=== PATIENT | female | born 1985 | race African-American/Black ===

== ENCOUNTER 2019-12-31 10:02 | Emergency (ER) | payer SELFPAY ==
[~2019-12-31] VITALS: Ht 165.1 cm; Wt 61.1 kg
[2019-12-31] MEDS ORDERED: TRAM50TA PO (10:33)
[2019-12-31] MEDS ORDERED: AMOX500C PO (10:33)
[2019-12-31] MEDS ORDERED: PRED50TA PO (10:33)
--- NOTE | 2019-12-31 10:33 | PHYS DOC ---
Adult General Chief Complaint Chief Complaint: SORE THROAT [facility] HPI Patient is a 34 year old female who presents with complaint of sore throat 2 days duration. No fever or chills reported. No cough. She has taken pgyj-abt-rocdhat medication for pain but has not had relief. Pain is moderate in severity and worse with swallowing. She denies difficulty swallowing Review of Systems Review of Systems All other ROS is negative unless otherwise stated in HPI Physical Exam Physical Exam See above Constitutional: Well developed, well nourished, no acute distress, non-toxic appearance. [] HENT: Normocephalic, atraumatic, bilateral external ears normal, patient has moderate posterior pharynx erythema with exudate noted on the right side. Eyes: PERRLA, EOMI, conjunctiva normal, no discharge. [] Neck: Normal range of motion, no tenderness, supple, no stridor. Anterior cervical lymphadenopathy noted Cardiovascular:Heart rate regular rhythm, no murmur [] Lungs & Thorax: Bilateral breath sounds clear to auscultation [] Skin: Warm, dry, no erythema, no rash. [] Back: No tenderness, no CVA tenderness. [] Extremities: No tenderness, no cyanosis, no clubbing, ROM intact, no edema. [] Neurologic: Alert and oriented X 3 EKG EKG [] Radiology/Procedures Radiology/Procedures [] Course & Med Decision Making Course & Med Decision Making Pertinent Labs and Imaging studies reviewed. (See chart for details) 1030: This patient is seen for sore throat and examination is consistent with strep pharyngitis. We'll start her on amoxicillin. Patient was given the option of intramuscular injection versus oral tablets and she would rather do tablets. I will also place her on prednisone for 3 days to help with swelling and inflammation. Dragon Disclaimer Dragon Disclaimer This electronic medical record was generated, in whole or in part, using a voice recognition dictation system. Departure Departure Impression: Primary Impression: Strep sore throat Disposition: 01 HOME, SELF-CARE Condition: STABLE Referrals: NO PCP (PCP) Patient Instructions: Strep Throat Additional Instructions: You may also use ibuprofen and Tylenol to help with pain Scripts Tramadol Hcl (TRAMADOL HCL) 50 Mg Tablet 50 MG PO Q6HRS PRN for PAIN for 3 Days, #12 TAB Prov: ERICKSON FELDMAN DO 12/31/19 Prednisone (PREDNISONE) 50 Mg Tablet 1 TAB PO DAILY for 3 Days, #3 TAB Prov: ERICKSON FELDMAN DO 12/31/19 Amoxicillin (AMOXICILLIN) 500 Mg Capsule 1 CAP PO TID, #30 CAP Prov: ERICKSON FELDMAN DO 12/31/19 ERICKSON FELDMAN DO Dec 31, 2019 10:33
[2019-12-31 10:35] VITALS: BP 144/70
== END 2019-12-31 10:45 | disposition home or self-care (01) ==
LOC: ER 10:02
DX: J02.0 Streptococcal pharyngitis (principal); B96.89 Other specified bacterial agents as the cause of diseases classified elsewhere; L53.9 Erythematous condition, unspecified
CPT/HCPCS: 87070; 87880; 99283